=== PATIENT | female | born 1965 | race Hispanic/Latino ===

== ENCOUNTER 2016-10-15 09:47 | Outpatient (CLI) | payer BC ==
--- NOTE | 2016-10-15 17:26 | Magnetic Resonance Report ---
MR scan of the cranium was performed with and without contrast. Pulse sequences included: 1. T1 weighted sagittal and axial images without contrast and T1 axial and coronal images with contrast 2. T2 weighted axial and coronal images 3. FLAIR axial images 4. Diffusion-weighted axial images 5. Apparent diffusion coefficient images Views of the posterior fossa showed a normal craniocervical junction. Cerebellar pontine angles were normal with normal seventh-eighth nerve complexes. Brainstem and cerebellum were normal. The ventricular system showed no dilatation or distortion. Images of the hemispheres showed areas of increased signal in the distribution of the left posterior cerebral artery involving the medial temporal region, the globus pallidus, as well as the left parietal and occipital regions. These areas also showed increased signal on DWI images with decreased perfusion on ADC images. Some mild changes consistent with white matter araiosis were also seen. There was a small left frontal subarachnoid cyst also seen, unlikely to be of clinical significance. Sinuses, pituitary, flow voids in the benton of Abel, orbits, and basal ganglia were normal. Some increased signal was seen with contrast in the left basal ganglia and the left occipital region. Are no abnormal areas of enhancement with contrast. Impression: Abnormal MR scan of the cranium with and without contrast a. left posterior cerebral infarct b. mild white matter araiosis C. small left frontal cyst
== END 2016-10-15 09:48 | disposition home or self-care (01) ==
LOC: SPVIMAG 09:47
PROVIDERS: ATTEND Specialist
DX: G93.0 Cerebral cysts (principal)
CPT/HCPCS: 70553

== ENCOUNTER 2016-10-28 12:32 | Outpatient (CLI) | payer BC | END 2016-10-28 12:33 | disposition home or self-care (01) | LOC: SPVIMAG 12:32 | PROVIDERS: ATTEND Specialist | DX: I63.40 Cerebral infarction due to embolism of unspecified cerebral artery (principal) | CPT/HCPCS: 70544; 70547 ==

== ENCOUNTER 2016-11-11 06:51 | Day surgery (SDC) | payer BC ==
[2016-11-11 07:49] LABS: Basophils % (Auto) 1.4 % (0.0-1.8); Eosinophils % (Auto) 4.8 % (0.0-4.3); Hematocrit 40.9 % (30.3-42.9); Hemoglobin 14.4 gm/dl (10.1-14.3); Mean Corpuscular HGB Conc 35 % (30-34); Mean Corpuscular Hemoglobin 30 pg (28-32); Mean Corpuscular Volume 84 fl (79-97); Platelet Count 295 K/mm3 (140-440); Red Blood Count 4.87 M/mm3 (3.65-5.03); Red Cell Distribution Width 14.6 % (13.2-15.2); White Blood Count 10.7 K/mm3 (4.5-11.0)
[2016-11-11 07:57] LABS: INR 0.95 (0.87-1.13)
[2016-11-11] MEDS ORDERED: ZOFRAN ONE (08:00)
[2016-11-11 08:14] LABS: Anion Gap 23 mmol/L; BUN/Creatinine Ratio 34.28; Blood Urea Nitrogen 24 mg/dL (7-17); Calcium 9.6 mg/dL (8.4-10.2); Carbon Dioxide 23 mmol/L (22-30); Chloride 96.5 mmol/L (98-107); Glucose 285 mg/dL (65-100); Sodium 137 mmol/L (137-145)
[2016-11-11] MEDS ORDERED: XYLOCAINE MPF 2% ONE ×2 (08:17→13:00)
[2016-11-11] MEDS ORDERED: DIPRIVAN 10 MG/ML IV ONE ×3 (08:17)
[2016-11-11] MEDS ORDERED: DILAUDID ONE (08:21)
--- NOTE | 2016-11-11 08:36 | Anesthesia Day of Surgery ---
Anesthesia Day of Surgery - Day of Surgery Patient Examined: Yes Patient H&P Reviewed: Yes Patient is NPO: Yes
--- NOTE | 2016-11-11 08:37 | Anesthesia Consultation ---
Anesthesia Consult and Med Hx Date of service: 11/11/16 - Airway Anesthetic Teeth Evaluation: Good ROM Head & Neck: Adequate Mental/Hyoid Distance: Adequate Mallampati Class: Class II Intubation Access Assessment: Probably Good - Pulmonary Exam CTA: Yes - Cardiac Exam Cardiac Exam: RRR - Pre-Operative Health Status ASA Pre-Surgery Classification: ASA2 Proposed Anesthetic Plan: MAC - Pulmonary Hx Smoking: No Hx Asthma: No Hx Sleep Apnea: No - Cardiovascular System Hx Hypertension: No Hx Coronary Artery Disease: No Hx Heart Attack/AMI: No - Central Nervous System CVA: Yes (07/2016) Hx Psychiatric Problems: No - Endocrine Hx Renal Disease: No Hx Insulin Dependent Diabetes: No Hx Non-Insulin Dependent Diabetes: No Hx Thyroid Disease: No - Other Systems Hx Cancer: No Hx Obesity: Yes
--- NOTE | 2016-11-11 08:37 | Post Anesthesia Evaluation ---
- Post Anesthesia Evaluation Patient Participated: Yes Airway Patent: Yes Stable Respiratory Function: Yes Nausea/Vomiting: No Temp > 96.8F: Yes Pain Manageable: Yes Adequeate Hydration: Yes Anesthesia Complications: No Block Receding Appropriately: Not Applicable Patient on Ventilator: No
[2016-11-11] MEDS ORDERED: HURRICAINE ONE 20% TOPICAL SPRAY MM (08:40)
[2016-11-11] MEDS ORDERED: VERSED IV ONE (09:00)
[2016-11-11] MEDS ORDERED: SUBLIMAZE IV ONE (09:00)
[2016-11-11] MEDS ORDERED: HURRICAINE ONE 20% TOPICAL SPRAY MM NR ×2 (09:00)
[2016-11-11] MEDS ORDERED: NACL 0.9% 500 ML 500 ML IV SCH (09:00)
--- NOTE | 2016-11-11 09:34 | Short Stay Summary ---
Short Stay Documentation Date of service: 11/11/16 - History H&P: obtained from office - Allergies and Medications Current Medications: Allergies No Known Allergies Allergy (Verified 11/11/16 07:32) Home Medications Medication Instructions Recorded Confirmed Last Taken Type Aspirin EC [Aspirin Enteric Coated 81 mg PO QDAY 11/11/16 11/11/16 11/10/16 History TAB] Active Medications Sodium Chloride (Nacl 0.9% 500 Ml) 500 mls @ 50 mls/hr IV DIRECT BO Last Admin: 11/11/16 08:21 Dose: 50 mls/hr - Brief post op/procedure progress note Date of procedure: 11/11/16 Pre-op diagnosis: cva Post-op diagnosis: same Procedure: see vaishali report Anesthesia: local Estimated blood loss: none Pathology: none - Disposition Condition at discharge: Good Disposition: DISCHARGED TO HOME OR SELFCARE - Discharge Diagnoses (1) CVA (cerebrovascular accident) Status: Acute Qualifiers: CVA mechanism: unspecified Precerebral and cerebral artery: P Laterality of affected vessel: L Qualified Code(s): I63.9 - Cerebral infarction, unspecified Short Stay Discharge Plan Activity: advance as tolerated Diet: regular, low fat, low cholesterol Follow up with: EDEN GRIDER MD [Primary Care Provider] - 7 Days
[2016-11-11] MEDS ORDERED: ULTRAM PO ONE (11:30)
[2016-11-11 12:53] VITALS: BP 129/75
[2016-11-11] MEDS ORDERED: NORCURON IV ONE (13:00)
[2016-11-11] MEDS ORDERED: AMIDATE IV ONE (13:00)
[2016-11-11] MEDS ORDERED: BRETHINE ONE (13:00)
== END 2016-11-11 11:30 | disposition home or self-care (01) ==
LOC: OPU 06:51 → EDSTATUS 08:00 → OPU 11:30
PROVIDERS: ATTEND Internal Medicine
DX: I63.9 Cerebral infarction, unspecified (principal); E66.9 Obesity, unspecified; Z68.30 Body mass index [BMI] 30.0-30.9, adult; Z90.710 Acquired absence of both cervix and uterus
CPT/HCPCS: 36415; 80048; 85025; 85610; 93312; 93320; 93325; J1170; J2405; J2704; J3105; J7040